=== PATIENT | female | born 1960 | race Caucasian/White ===

== ENCOUNTER → 2020-04-07 10:36 | Outpatient (BNVA) | payer MEDICARE, MEDICAID, SELFPAY | PROVIDERS: PCP Internal Medicine; Referring Provider Internal Medicine; Visit Provider Orthopaedic Surgery | DX: M75.41 Impingement syndrome of right shoulder (principal); S43.005D Unspecified dislocation of left shoulder joint, subsequent encounter | CPT/HCPCS: 20610; 99212; J1100 ==

== ENCOUNTER 2020-04-20 10:16 | Outpatient (REF) | payer MEDICARE, MEDICAID, OTHER, SELFPAY ==
--- NOTE | 2020-04-20 10:18 | MR_ITS ---
EXAMINATION: MRI SHOULDER WITHOUT CONTRAST, LEFT CLINICAL INFORMATION: Dislocation left shoulder. COMPARISON: X-ray of the left shoulder 01/19/2020. TECHNIQUE: MRI of the left shoulder was performed on a high-field 1.5 Kathy MRI scanner. FINDINGS: ROTATOR CUFF: Supraspinatus and Infraspinatus: There is a complete insertional tear involving both tendons anterior to posterior. The tear results in tendon retraction back to the level of the glenoid resulting in a tendon gap measuring 5.2 cm medial to lateral and 5 cm anterior to posterosuperiorly. There is also a complete or near full-thickness versus full-thickness insertional tear of the subscapularis. There appears to be some bursal-sided fibers still intact at least along the inferior aspect of the tendon. The tear results in retraction of the torn tendon 3 cm medial to lateral. The teres minor tendon is intact. There is moderate atrophy and fatty infiltration of the supraspinatus, infraspinatus and subscapularis muscles along with some mild generalized edema. BICEPS TENDON: There is minimal, if any, irregular tendon identified in the usual expected course indicative of a complete or high-grade partial tear originating within the intra-articular portion the biceps. The torn tendon is also subluxed medially, likely related to the aforementioned subscapularis tear. CORACOACROMIAL ARCH: There is moderate hypertrophic osteoarthritis of the acromioclavicular joint. Mild concavity of the undersurface of the acromion. No subacromial spur. BURSA: There is fluid within the subacromial-subdeltoid bursa communicating with the joint through the rotator cuff defect. LABRUM/CAPSULE: Some blunting of the posterior labrum compatible with normal variation or degenerative tearing. GLENOHUMERAL JOINT: There are small marginal osteophytes along the inferior aspect of the humeral head. There is cartilage heterogeneity along the superolateral aspect of the apex of the humeral head. There is nonuniform up to high-grade cartilage loss with the cartilage abnormality most prominent in the central aspect of the glenoid. Overall, [id number] glenohumeral arthrosis. There is a moderate joint effusion with synovitis. MR/MR shoulder LT wo con IMPRESSION: 1. Large insertional full-thickness tear of the supraspinatus and infraspinatus tendons with additional atrophy and fatty infiltration of the muscles suggesting old or chronic rotator cuff injury. 2. Similarly, there is an insertional full-thickness/near full-thickness tear of the subscapularis. The may be some tendon tissue still intact along the inferior aspect of the tendon. There is also atrophy and fatty infiltration of the muscle indicative of a chronic or old tear. 3. Complete or near-complete tear of the biceps tendon; favor functionally complete tear with minimal irregular tendon tissue noted throughout the expected course of the tendon. The abnormal tendon tissue identified also appears to be medially subluxed, likely related to the subscapularis tear. 4. Degenerative tearing of the posterior labrum versus normal variation. 5. [id number] glenohumeral arthrosis with associated joint effusion and synovitis.
== END 2020-04-20 10:17 | disposition home or self-care (01) ==
LOC: HO.MRI 10:16
PROVIDERS: Visit Provider Orthopaedic Surgery
DX: S43.005A Unspecified dislocation of left shoulder joint, initial encounter (principal)
CPT/HCPCS: 73221

== ENCOUNTER → 2020-05-04 11:21 | Outpatient (BNVA) | payer MEDICARE, MEDICAID, OTHER, SELFPAY | PROVIDERS: PCP Internal Medicine; Referring Provider Internal Medicine; Visit Provider Orthopaedic Surgery | DX: M75.122 Complete rotator cuff tear or rupture of left shoulder, not specified as traumatic (principal) | CPT/HCPCS: 99212 ==

== ENCOUNTER → 2020-06-26 14:34 | Outpatient (BNVA) | payer MEDICARE, MEDICAID, OTHER, SELFPAY | PROVIDERS: PCP Internal Medicine; Visit Provider Internal Medicine Cardiovascular Disease | DX: Z01.810 Encounter for preprocedural cardiovascular examination (principal); I10 Essential (primary) hypertension | CPT/HCPCS: 93005; 99212 ==

== ENCOUNTER → 2020-08-04 11:29 | Outpatient (BNVA) | payer MEDICARE, MEDICAID, SELFPAY | PROVIDERS: PCP Internal Medicine; Visit Provider Orthopaedic Surgery | DX: M75.41 Impingement syndrome of right shoulder (principal) | CPT/HCPCS: 20610; 99212; J1040 ==

== ENCOUNTER → 2020-08-14 12:41 | Outpatient (BNVA) | payer MEDICARE, SELFPAY | PROVIDERS: PCP Internal Medicine; Visit Provider Orthopaedic Surgery | DX: Z13.89 Encounter for screening for other disorder (principal) | CPT/HCPCS: 99212 ==

== ENCOUNTER 2020-09-11 10:10 | Outpatient (REF) | payer MEDICARE, MEDICAID, SELFPAY ==
--- NOTE | ~2020-09-11 | CT_ITS ---
EXAMINATION: CT SHOULDER WITHOUT CONTRAST, LEFT CLINICAL INFORMATION: Impingement syndrome of the left shoulder. COMPARISON: Left shoulder MRI dated 04/20/2020. TECHNIQUE: Contiguous axial CT images of the left shoulder were obtained without contrast. Multiplanar reformats were provided and reviewed. This CT examination was performed using dose optimization techniques as appropriate, variously including the following: *Automated exposure control *Adjustment of mA and/or kV according to patient size (this includes techniques or standardized protocols for targeted exams where dose is matched to indication/reason for exam; i.e. extremities or head) *Use of iterative reconstruction technique DOSE: 418 mGy-cm. FINDINGS: No acute fracture or dislocation. Small acromioclavicular marginal osteophytes. Mild glenohumeral joint space narrowing with small marginal osteophytes. Posterior glenoid subchondral cystic change. The humeral head is well seated within the glenoid. No concerning lytic or blastic osseous lesion. No significant glenoid retroversion. The glenoid vault depth measures approximately 2.5 cm. Attenuation of the supraspinatus and infraspinatus tendons, consistent with tearing which is better seen in the prior MRI. Prominent subscapularis, supraspinatus, infraspinatus, and teres minor muscle atrophy. No abnormal soft tissue mass or fluid collection. The visualized left lung is clear. CT/CT shoulder LT wo con IMPRESSION: 1. Moderate glenohumeral osteoarthritis and mild acromioclavicular osteoarthritis. 2. Attenuation of the supraspinatus and infraspinatus tendons, consistent with tearing which is better visualized on the prior MRI. 3. Prominent muscle atrophy within the subscapularis, supraspinatus, infraspinatus, and teres minor muscles.
== END 2020-09-11 10:11 | disposition home or self-care (01) ==
LOC: HO.CT 10:10
PROVIDERS: PCP Internal Medicine; Visit Provider Orthopaedic Surgery
DX: M12.812 Other specific arthropathies, not elsewhere classified, left shoulder (principal)
CPT/HCPCS: 73200

== ENCOUNTER → 2020-09-28 12:04 | Outpatient (BNVA) | payer MEDICARE, MEDICAID, SELFPAY | PROVIDERS: PCP Internal Medicine; Visit Provider Physician Assistant | DX: Z01.818 Encounter for other preprocedural examination (principal); M12.812 Other specific arthropathies, not elsewhere classified, left shoulder | CPT/HCPCS: 99212 ==

== ENCOUNTER 2020-09-29 | Outpatient (REF) | payer MEDICARE, MEDICAID, SELFPAY ==
--- NOTE | 2020-09-29 11:52 | P.CONAN_ITS ---
HPI - Anesthesia Eval Consult details Narrative: 60yo F for Left Shoulder Total Repair, reversed total shoulder ar throplasty PCP cleared prior to preop labs. Preop labs drawn 09/29/20. K=2.7. Per Dr Lyle, pt needs aggressive PO repletion over long weekend with lytes recheck DOS. PCP unavailable to direct care. Per sasha, pt to be rescheduled PER CARDIAC CLEARANCE 06/2020 for back surgery: I think she does not do exercise stress test. She is intermediate risk for perioperative cardiovascular complications. Echocardiography in October 2019 showed hyperdynamic left ventricle with systolic anterior motion of mitral valve chordae (there was no systolic anterior motion of the leaflets). Usually this does not lead to significant LVOT obstruction but in the perioperative period if she develops hypertension and fluid resuscitation and using phenylephrine or vasopressin as the 1st line pressors would be the best strategy. [facility] Active Problems Active Problems: All Active Problems (Updated 09/28/20 @ 10:22 by Codie Morales) Preoperative cardiovascular examination (Acute) Rotator cuff arthropathy of left shoulder (Acute) Impingement syndrome of right shoulder (Acute) Dislocation of left shoulder joint (Acute) HTN (hypertension) (Acute) Past Medical History Medical History (Updated 09/29/20 @ 12:22 by Codie Morales) Aortic valve stenosis Arthritis Dislocation of left shoulder joint Environmental allergies GERD (gastroesophageal reflux disease) Hepatitis HTN (hypertension) Impingement syndrome of right shoulder Primary osteoarthritis, right shoulder Rotator cuff arthropathy of left shoulder Unilateral primary osteoarthritis, right knee Family History Family History Father No problems noted. Mother No problems noted. 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 >4 [address]s with stairs. No CP/SOB within limits of activity. Meds Allergies Allergy/AdvReac Type Severity Reaction Status Date / Time amoxicillin Allergy Mild headaches, Verified 09/28/20 12:12 nausea atorvastatin AdvReac Severe severe Verified 09/28/20 12:12 muscle cramping Home Medications Medication Instructions Recorded Confirmed Last Taken Type amlodipine 10 mg tablet 10 mg PO QAM 04/06/20 09/29/20 Unknown History ezetimibe 10 mg tablet 10 mg PO BEDTIME 04/06/20 09/29/20 Unknown History lisinopril 20 mg tablet 20 mg PO QAM 04/06/20 09/29/20 Unknown History acetaminophen 1,000 mg PO BID 09/29/20 09/29/20 Unknown History albuterol sulfate [Ventolin HFA] 2 puff INHALATION Q4-6H PRN 09/29/20 09/29/20 Unknown History melatonin 12 mg PO BEDTIME 09/29/20 09/29/20 Unknown History omeprazole 20 mg PO QAM 09/29/20 09/29/20 Unknown History venlafaxine 225 mg PO BEDTIME 09/29/20 09/29/20 Unknown History Exam Exam Date and Time: September 29, 2020 1152 Narrative Narrative: EKG 09/2020 (at PCP) NSR ?LAE LVH Prolonged QT (EFm=855) ECHO 10/2019 1. Normal LV systolic unction with asymmetric septal hypertrophy with mild LAE increased gradient across LVOT suggestive of obstruction with grade 1 diastolic dysfunction 2. Mild Aortic regurgitation 3. Mild dilated ascending aorta 4. No pericardial effusion 5. Normal RV systolic pressure Airway Mallampati Class: II TM Dist: >3cm Neck ROM: Full Loose/Missing/Broken Teeth: Yes (#9 chipped. Multiple molars missing.) Heart: RRR +M Lungs: Uppers clear, expiratory wheezes in bases Assessment and Plan Assessment Anesthesia Assessment: Anesthesia Plan Discussed, Smoking Cess. Discussed and PAT Visit
[2020-09-29 12:05] VITALS: BMI 33.8
[2020-09-29 12:28] VITALS: BP 99/63; PULSE 89; RESP 18; O2SAT 96
[2020-09-29 13:48] LABS: MANUAL DIFF FLAG NO
[2020-09-29 14:02] LABS: Basophils Percent Auto 0.5 % (0-2); Eosinophils Absolute Auto 0.1 X10*3/uL (0.0-0.4); Eosinophils Percent Auto 0.9 % (0-4); Hematocrit 38.9 % (37-47); Hemoglobin 14.4 g/dl (12.0-16.0); Imm Gran Abs Auto 0.04 X10*3/uL (0.00-0.03); Imm Gran Pct Auto 0.7 % (0.0-0.4); Lymphocytes Percent Auto 17.6 % (20-40); Mean Corpuscular Hemoglobin 36.7 pg (27.0-33.0); Mean Corpuscular Volume 99.2 fL (80-98); Mean Platelet Volume 9.3 fL (9.4-12.3); Monocytes Absolute Auto 0.4 X10*3/uL (0.1-1.2); NRBC Pct Auto 0.9 /100WBC (0.0-0.2); Neutrophils Absolute Auto 4.3 X10*3/uL (2.0-8.3); Neutrophils Percent Auto 73.3 % (45-73); Platelet Count 152 X10*3/uL (160-400); Red Blood Count 3.92 X10*6/uL (4.20-5.50); Red Cell Distribution Width 18.8 % (11.0-16.0); White Blood Count 5.9 X10*3/uL (4.8-10.8)
[2020-09-29 14:29] LABS: MRSA Nasal PCR NEGATIVE (Negative); SA Nasal PCR NEGATIVE (Negative)
[2020-09-29 14:31] LABS: Blood Urea Nitrogen 6 mg/dL (9-16); Carbon Dioxide 31 mmol/L (22-29); Chloride 95 mmol/L (96-108); Creatinine Clr Calc Pharmacy 78.1; Estimated Glomerular Filt Rate > 60; Sodium 140 mmol/L (135-145)
[2020-09-29 14:35] LABS: Anion Gap 17 (12-20); Potassium 2.7 mmol/L (3.3-5.1)
== END 2020-09-29 00:01 | disposition home or self-care (01) ==
LOC: HO.PAT
PROVIDERS: Physician Assistant; PCP Internal Medicine; Visit Provider Orthopaedic Surgery
DX: Z01.818 Encounter for other preprocedural examination (principal); M75.102 Unspecified rotator cuff tear or rupture of left shoulder, not specified as traumatic; F17.210 Nicotine dependence, cigarettes, uncomplicated; Z71.6 Tobacco abuse counseling
CPT/HCPCS: 36415; 80051; 82565; 84520; 85025; 86850; 86900; 86901; 87640; 87641

== ENCOUNTER → 2020-11-02 13:45 | Outpatient (BNVA) | payer MEDICARE, MEDICAID, SELFPAY | PROVIDERS: PCP Internal Medicine; Visit Provider Orthopaedic Surgery | DX: M19.011 Primary osteoarthritis, right shoulder (principal); M12.812 Other specific arthropathies, not elsewhere classified, left shoulder | CPT/HCPCS: 20610; 99212; J1100 ==

== ENCOUNTER → 2021-04-09 13:17 | Outpatient (BNVA) | payer MEDICARE, MEDICAID, SELFPAY | PROVIDERS: Visit Provider Orthopaedic Surgery | DX: M19.011 Primary osteoarthritis, right shoulder (principal); M12.812 Other specific arthropathies, not elsewhere classified, left shoulder | CPT/HCPCS: 99212 ==

== ENCOUNTER 2021-05-15 13:56 | Outpatient (REF) | payer MEDICARE, MEDICAID, SELFPAY ==
--- NOTE | ~2021-05-15 | CT_ITS ---
EXAMINATION: CT SHOULDER WITHOUT CONTRAST, RIGHT CLINICAL INFORMATION: Primary osteoarthritis, right shoulder. COMPARISON: None TECHNIQUE: Helical scanning was performed with submillimeter collimation in the axial plane with multiplanar 2-D reconstructions. This CT examination was performed using dose optimization techniques as appropriate, variously including the following: *Automated exposure control *Adjustment of mA and/or kV according to patient size (this includes techniques or standardized protocols for targeted exams where dose is matched to indication/reason for exam; i.e. extremities or head) *Use of iterative reconstruction technique DLP: 685 mGy-cm FINDINGS: There are a few scattered areas of subpleural fibrotic changes in the visualized right lung. Otherwise unremarkable. There is severe advanced osteoarthritis of the glenohumeral joint. There is diffuse severe joint space narrowing with a vacuum phenomenon. There are numerous subchondral degenerative cysts and patchy sclerosis. There are marginal osteophytes, including a large inferomedial humeral head osteophyte. There is a moderate joint effusion with a small loose body in the anterior aspect of the axillary recess. There is fluid distending the biceps tendon sheath, as well. There is an unfused os acromiale with some hypertrophic degenerative changes, including prominent osteophytes, particularly at the superior margin. There is also a chronic-appearing ossification superiorly which may be degenerative or posttraumatic. There is moderate osteoarthritis of the acromioclavicular joint. CT/CT shoulder RT wo con IMPRESSION: 1. Severe advanced osteoarthritis of the glenohumeral joint. Moderate joint effusion with small loose body in the axillary recess. 2. Unfused os acromiale with moderate hypertrophic degenerative changes. 3. Moderate osteoarthritis of the acromioclavicular joint.
== END 2021-05-15 13:57 | disposition home or self-care (01) ==
LOC: HO.CT 13:56
PROVIDERS: Visit Provider Orthopaedic Surgery
DX: M19.011 Primary osteoarthritis, right shoulder (principal)
CPT/HCPCS: 73200

== ENCOUNTER → 2021-06-29 12:04 | Outpatient (BNVA) | payer MEDICARE, MEDICAID, SELFPAY | PROVIDERS: Visit Provider Nurse Practitioner Family | DX: Z01.810 Encounter for preprocedural cardiovascular examination (principal); R94.31 Abnormal electrocardiogram [ECG] [EKG]; I10 Essential (primary) hypertension; I42.2 Other hypertrophic cardiomyopathy; I35.1 Nonrheumatic aortic (valve) insufficiency | CPT/HCPCS: 93005; 99212 ==

== ENCOUNTER → 2021-07-03 07:31 | Outpatient (REF) | payer MEDICARE, MEDICAID, SELFPAY ==
--- NOTE | ~2021-07-03 | NM_ITS ---
Lexiscan Myocardial perfusion study Indication: Preoperative cardiovascular evaluation Technique: The patient was brought in for a Lexiscan perfusion study on 07/03/2021 and was injected 0.4 mg of Lexiscan intravenously. Within a minute of this injection 30 mCi of sestamibi was given intravenously. Images were obtained using the SPECT gamma camera interlaced with the gating device. Images were obtained in supine position. Resting perfusion study was performed on 07/05/2021. Patient was administered 30 mCi of sestamibi intravenously at rest. Images were then obtained in supine position. Total DLP 96mGy-cm. Images were processed with the software and compared side to side in short axis, horizontal long axis and vertical long axis views. Findings: Raw acquisition was reviewed. The stress perfusion study showed mildly diminished tracer uptake in the basal part of inferior wall. There is improvement with CT attenuation correction suggesting diaphragmatic attenuation artifact. The gated study shows normal LV systolic function with calculated LVEF of 52%. LV cavity is normal in size. The gated study shows normal wall thickening and contraction of segments. Resting study shows mildly diminished tracer uptake in the basal part of inferior wall. Gating at rest reveals normal wall motion with ejection fraction at 64%. The findings are consistent with no reversible defects. Mild basal inferior fixed defect likely from diaphragmatic attenuation artifact NM/NM cardiolite stress test Impression: 1. Myocardial perfusion imaging study shows likely normal myocardial perfusion. 2. Gated LVEF is 52% during stress and 64% during rest. 3. Transient ischemic dilatation not present. EKG component of the test reported separately.
--- NOTE | 2021-07-03 07:38 | CA_ITS ---
Transthoracic Echocardiogram Patient (Last, First, Middle): Makenzie Brwon, Gender: Female Date of : 1960 Age: 61 Procedure Date: 07/03/2021 Procedure Type: Transthoracic Echocardiogram Location: OP Height: 165.1 cm Weight: 86.18 kg BSA: 1.94 m2 Heart Rate: bpm BP: 130 / 70 mmHg Operating Room Tech: DSG Referring MD: Jewels Patel SAMPLE SELECTORFarzad Symptoms: R94.31 - Abnormal electrocardiogram [ECG] [EKG] Study Quality: Fair ECG Rhythm: Sinus Conclusions: - The left ventricular systolic function is normal. The visually estimated ejection fraction is between 65-70%. - There is moderate septal asymmetric hypertrophy. - There is mild calcification of the aortic valve. There is no aortic valve stenosis. - Proximal ascending aorta measured at 4.4cm (?accurate); more distally 4.2cm. Consider CTA if clinically indicated. Findings Left Ventricle Normal left ventricular cavity size. There is mildly increased left ventricular wall thickness. The left ventricular systolic function is normal. The visually estimated ejection fraction is between 65-70%. There is no evidence of regional wall motion abnormalities. Diastolic function is indeterminate on the basis of available data. There is moderate septal asymmetric hypertrophy. Right Ventricle Normal right ventricular cavity size and systolic function. Atria Both atria are normal in size. Aortic Valve There is a normal trileaflet aortic valve. There is mild calcification of the aortic valve. There is no aortic valve stenosis. The peak aortic gradient is 12 mmHg.Trace to mild aortic regurgitation. Mitral Valve The mitral valve appears normal. There is trace mitral valve regurgitation. There is no mitral valve stenosis. Pulmonic Valve The pulmonic valve was not well visualized. Tricuspid Valve Normal tricuspid valve structure. There is trace tricuspid valve regurgitation. The pulmonary artery systolic pressure is normal. Great Vessels The aortic arch is normal in size. Proximal ascending aorta measured at 4.4cm (?accurate); more distally 4.2cm. Venous The inferior vena cava is normal in size and collapses greater than 50% with inspiration. Pericardium/Pleural There is no evidence of pericardial effusion. Prior Study Comparison Changes noted compared to prior study dated: 11/10/2019. LV not clearly hyperdynamic. Measurements 2D Linear Measurements IVSd: 1.36 0.6-0.9/0.6-1.0 cm LVIDd: 4.62 3.9-5.3/4.2-5.9 cm LVIDd Index: 2.38 2.4-3.2/2.2-3.1 cm/m2 LVIDs: 2.80 2.0-3.6 cm LVPWd: 1.16 0.7-1.1 cm Ao Root: 3.90 2.1-3.5 cm LA Diam: 3.40 2.7-3.8/3.0-4.0 cm LAIDs Index: 1.75 1.5-2.3 cm/m2 LV Mass: 276.00 67-162/88-224 g LV Mass Index: 142.27 43-95/49-115 g/m2 LVOT Diam: 2.30 3.0+(-)1.3 cm 2D Systolic Function EF 4C: 59.30 >55% Mitral Valve E'Lateral: 6.64 E'Medial: 4.68 Aortic Valve AoV Pk Roque: 1.75 AoV Pk Grad: 12.00 AI Pk Roque: 4.71 AI [place]: 2.90 LVOT LVOT Pk Roque: 1.64 LVOT Mn Roque: 1.08 LVOT VTI: 0.31 LVOT Pk Grad: 11.00 LVOT Mn Grad: 6.00 LVOT Diam: 2.30 LVOT Area: 4.15 Diastolic Function E'Medial: 4.68 E' Laterial: 6.64 Right Ventricle TAPSE (mm): 1.93 TVS' Roque: 10.10 Tricuspid Valve RA Press: 3.00 Great Vessels Aorta Ao Root-2D: 3.90 2.0-3.7 cm Ao Asc: 4.20 2.1-3.4 cm Ao Arch: 2.70 Updated in Other Vendor System with Status of Final Ash Conley MD electronically signed on 07/03/2021 10:28:22 AM with status of Final
--- NOTE | 2021-07-03 07:38 | CA_ITS ---
Acquisition Time: 2021-07-03 09:22:02 Total Exercise Time: 00:02:00 Test Indications: PREOP Medications: SEE CHART Protocol: LEXISCAN Max HR: 121 BPM 75% of Pred: 160 BPM Max BP: 136/076 mmHG Max Work Load: 1.4 METS Pharmacological stress test with Lexiscan injection, while walking on treadmill for 1.5 min with sob post injection, no chest discomfort, with isolated PVC, with normotensive response to injection, with nondiagnostic EKG for ischemia. The shortness of breath resolved quickly in recovery. Nuclear images pending. Test reviewed with Dr Brito. Referred By: Jewels Patel Overread By: JEWELS PATEL
== END ==
LOC: HO.CARD 07:31
PROVIDERS: PCP Internal Medicine; Visit Provider Nurse Practitioner Family
DX: Z01.810 Encounter for preprocedural cardiovascular examination (principal); R94.31 Abnormal electrocardiogram [ECG] [EKG]; I10 Essential (primary) hypertension
CPT/HCPCS: 78452; 93017; 93306; A9500; J0280; J2785

== ENCOUNTER → 2021-07-12 13:16 | Outpatient (BNVA) | payer MEDICARE, MEDICAID, SELFPAY | PROVIDERS: Visit Provider Physician Assistant | DX: M19.011 Primary osteoarthritis, right shoulder (principal) | CPT/HCPCS: 99212 ==

== ENCOUNTER 2021-07-17 06:22 | Inpatient (IN) | payer MEDICARE, MEDICAID, SELFPAY ==
[2021-07-05 11:50] VITALS: BP 89/66; PULSE 84; RESP 20; O2SAT 97; BMI 33.1
--- NOTE | 2021-07-05 12:15 | HO.ANESPROP2 ---
Documented by User: Iona Fournier NP 07/16/21 08:49 HPI - Anesthesia Eval Consult details Narrative: 61yo F for Right Shoulder Total Arthroplasty Moderate septal asymmetric hypertrophy. Cardiac cleared @ intermediate: Echocardiogram shows EF 65-70%, moderate septal hypertrophy, proximal aorta 4.4 cm, distal 4.2 cm.? Will order a CTA of the chest to evaluate aorta, does not need to be done prior to her surgery.? Nuclear stress test showed likely normal myocardial perfusion imaging.? Tests results reviewed with Dr. Brito.? Patient intermediate cardiac risk to proceed with surgery.? Call/consult Cardiology if needed. Prev cx'd for K/Mg abnormality. Managed by PCP. Now WNL [facility] Active Problems Active Problems: All Active Problems (Updated 07/05/21 @ 11:44 by Codie Morales RN) Preoperative cardiovascular examination (Acute) Osteoarthritis of right shoulder (Acute) Abnormal EKG (Acute) Aortic regurgitation (Acute) Asymmetric septal hypertrophy (Acute) Rotator cuff arthropathy of left shoulder (Acute) Impingement syndrome of right shoulder (Acute) Dislocation of left shoulder joint (Acute) HTN (hypertension) (Acute) Past Medical History Medical History Arthritis Asymmetric septal hypertrophy COVID-19 vaccine series completed Depression Dislocation of left shoulder joint Environmental allergies GERD (gastroesophageal reflux disease) Heart murmur Hepatitis HTN (hypertension) Hypokalemia Impingement syndrome of right shoulder Primary osteoarthritis, right shoulder Rotator cuff arthropathy of left shoulder Unilateral primary osteoarthritis, right knee Family History Family History Father No problems noted. Mother No problems noted. Family history of problems with anesthesia: Yes (Mother long to wake.) Surgical History Surgical History H/O colonoscopy History of appendectomy History of arthroplasty of both knees History of back surgery History of carpal tunnel release Hx of hysterectomy Hx of shoulder surgery History of Problems with Anesthesia: No Social History Social History Are you a primary healthcare prof to a significant other at home: No Do you presently have visiting nurse or other home services: Yes ([facility]) Patient Tobacco Use Status: Current everyday Tobacco user Tobacco use type: Cigarette Cigarette Packs Per Day: 0.5 Cigarettes Per Day: 10 Years Smoked: 42 Smoked in Last 30 Days: Yes Patient Interested in Nicotine Replacement: Yes Patient Given Instructions on How to Stop Smoking: Yes Date Education Initiated: 07/05/21 Second Hand Smoke Exposure: No Use of substances other than those prescribed or required for medical reasons: No Have you been hit, kicked, punched, or otherwise hurt by someone within the past year? 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 Occassional palps, but resolve with calming techniques. Meds Allergies Allergy/AdvReac Type Severity Reaction Status Date / Time atorvastatin AdvReac Severe severe Verified 06/29/21 12:18 muscle cramping amoxicillin AdvReac Mild headaches, Verified 07/17/21 07:16 nausea Home Medications Medication Instructions Recorded Confirmed Last Taken Type amlodipine 10 mg tablet 10 mg PO QAM 04/06/20 07/05/21 07/17/21 History ezetimibe 10 mg tablet 10 mg PO BEDTIME 04/06/20 07/05/21 Unknown History lisinopril 20 mg tablet 20 mg PO QAM 04/06/20 07/05/21 Unknown History acetaminophen 500 mg tablet 1,000 mg PO BID 09/29/20 07/05/21 Unknown History albuterol sulfate 90 mcg/actuation 2 puff INHALATION Q4-6H PRN 09/29/20 07/05/21 Unknown History aerosol inhaler (Ventolin HFA) melatonin 12 mg tablet 12 mg PO BEDTIME 09/29/20 07/05/21 Unknown History omeprazole 20 mg capsule,delayed 20 mg PO QAM 09/29/20 07/05/21 07/17/21 History release venlafaxine 225 mg tablet,extended 225 mg PO BEDTIME 09/29/20 07/05/21 Unknown History release 24 hr tizanidine 4 mg tablet 4 mg PO TID PRN 07/04/21 07/05/21 Unknown History tramadol 50 mg tablet 50 mg PO BID PRN 07/04/21 07/05/21 Unknown History Exam Exam Date and Time: July 05, 2021 1215 Height,Weight and Vital Signs: Height 5 ft 5 in Weight 90.265 kg Last Vital Signs Pulse 84 07/05/21 11:50 Resp 20 07/05/21 11:50 BP 89/66 L 07/05/21 11:50 Pulse Ox 97 07/05/21 11:50 Repeat BP 125/68 Pertinent Lab Results Pertinent Lab Results: Labs from outside facility 06/20/21 WBC 508 Hgb 15.2 Hct 43.7 Plt 142 (L) Na 140 K 4.3 Cl 103 Bicarb 26 Bun 11 Creat 0.7 Mg 1.7 Narrative Narrative: EKG 06/2021 SR, T wave inversion aVL, V1-V2, tall T waves, QTc 481ms, rate 83 ECHO 06/2021 Conclusions: - The left ventricular systolic function is normal.? The visually estimated ejection fraction is between 65-70%. ? - There is moderate septal asymmetric hypertrophy. ? - There is mild calcification of the aortic valve.? There is no? aortic valve stenosis. ? - Proximal ascending aorta measured at 4.4cm (?accurate); more ? distally 4.2cm.? Consider CTA if clinically indicated. ? NM cardiolite stress test 06/2021 Impression: ? 1.? Myocardial perfusion imaging study shows likely normal myocardial perfusion. 2.? Gated LVEF is 52% during stress and 64% during rest. 3. Transient ischemic dilatation not present. ? EKG component of the test non-diagnostic.. Airway Mallampati Class: II TM Dist: >3cm Neck ROM: Full Adult Head Mouth w/Numbe Teeth: 1. Chipped Loose/Missing/Broken Teeth: Yes (Many missing, #9 chipped) Heart: RRR +M Lungs: CTAB Assessment and Plan Assessment Anesthesia Assessment: Anesthesia Plan Discussed, Smoking Cess. Discussed and PAT Visit Final Anesthetic Review Family History of Problems with Anesthesia: Yes (Mother long to wake.) History of Problems with Anesthesia: No Documented by User: Storm Puri MD 07/17/21 09:16 [facility] Past Medical History Medical History Arthritis Asymmetric septal hypertrophy COVID-19 vaccine series completed Depression Dislocation of left shoulder joint Environmental allergies GERD (gastroesophageal reflux disease) Heart murmur Hepatitis HTN (hypertension) Hypokalemia Impingement syndrome of right shoulder Primary osteoarthritis, right shoulder Rotator cuff arthropathy of left shoulder Unilateral primary osteoarthritis, right knee Family History Family History Father No problems noted. Mother No problems noted. Surgical History Surgical History H/O colonoscopy History of appendectomy History of arthroplasty of both knees History of back surgery History of carpal tunnel release Hx of hysterectomy Hx of shoulder surgery Social History Social History Are you a primary healthcare prof to a significant other at home: No Do you presently have visiting nurse or other home services: Yes ([facility]) Patient Tobacco Use Status: Current everyday Tobacco user Tobacco use type: Cigarette Cigarette Packs Per Day: 0.5 Cigarettes Per Day: 10 Years Smoked: 42 Smoked in Last 30 Days: Yes Patient Interested in Nicotine Replacement: Yes Patient Given Instructions on How to Stop Smoking: Yes Date Education Initiated: 07/05/21 Second Hand Smoke Exposure: No Use of substances other than those prescribed or required for medical reasons: No Have you been hit, kicked, punched, or otherwise hurt by someone within the past year? 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 Allergies Allergy/AdvReac Type Severity Reaction Status Date / Time atorvastatin AdvReac Severe severe Verified 06/29/21 12:18 muscle cramping amoxicillin AdvReac Mild headaches, Verified 07/17/21 07:16 nausea Home Medications Medication Instructions Recorded Confirmed Last Taken Type amlodipine 10 mg tablet 10 mg PO QAM 04/06/20 07/05/21 07/17/21 History ezetimibe 10 mg tablet 10 mg PO BEDTIME 04/06/20 07/05/21 Unknown History lisinopril 20 mg tablet 20 mg PO QAM 04/06/20 07/05/21 Unknown History acetaminophen 500 mg tablet 1,000 mg PO BID 09/29/20 07/05/21 Unknown History albuterol sulfate 90 mcg/actuation 2 puff INHALATION Q4-6H PRN 09/29/20 07/05/21 Unknown History aerosol inhaler (Ventolin HFA) melatonin 12 mg tablet 12 mg PO BEDTIME 09/29/20 07/05/21 Unknown History omeprazole 20 mg capsule,delayed 20 mg PO QAM 09/29/20 07/05/21 07/17/21 History release venlafaxine 225 mg tablet,extended 225 mg PO BEDTIME 09/29/20 07/05/21 Unknown History release 24 hr tizanidine 4 mg tablet 4 mg PO TID PRN 07/04/21 07/05/21 Unknown History tramadol 50 mg tablet 50 mg PO BID PRN 07/04/21 07/05/21 Unknown History Exam Airway Adult Head Mouth w/Numbe Teeth: 1. Chipped Assessment and Plan Final Anesthetic Review NPO: Yes ASA Class: III Final Preanesthetic Review: No Changes in Pt Med Stat, Meds/Allgs Chart Reviewed, Consent Obtained/Reviewed and Anes Risks/Benef Reviewed Patient Risk: Intermediate Procedure Risk: Intermediate Anesthetic Plan Anesthetic Plan: GA and Regional Block Disposition: Standard PACU
[2021-07-05 13:46] LABS: Magnesium 1.7 mg/dL (1.6-2.6)
[2021-07-05 14:13] LABS: MRSA Nasal PCR NEGATIVE (Negative); SA Nasal PCR NEGATIVE (Negative)
[2021-07-17] VITALS (16 sets, daily range): BP systolic 107–159; BP diastolic 64–96; PULSE 78–103; RESP 18–22; TEMP 36–36.4; O2SAT 93–98
--- NOTE | ~2021-07-17 | XR_ITS ---
EXAMINATION: XR SHOULDER, RIGHT CLINICAL INFORMATION: Right shoulder replacement COMPARISON: Previous CT August 2020 TECHNIQUE: AP portable of the right shoulder. FINDINGS: There is a new right shoulder replacement in satisfactory position. No fracture or dislocation is seen. There are postsurgical changes to the soft tissues. There is subsegmental atelectasis of the right lung base. XR/XR shoulder RT 1V IMPRESSION: Satisfactory appearance of right shoulder replacement.
[2021-07-17 06:52] LABS: COVID-19 Test Negative (Negative); IDNOW Serial# 9DD0AD1C
[2021-07-17] MEDS: Lactated Ringers 1,000 ML 100 ML IVCONT (07:08)
--- NOTE | 2021-07-17 07:26 | MHC.SHP ---
Pre-Procedural Eval Section A Date of Service: 07/17/21 The patient is an INPATIENT: No Changes since office visit: Yes Patient answered all questions; No Cold of Flu in the past 2 weeks, No New Medical Problems and No Changes in Medication The History & Physical has been completed within 30 days and I have reviewed it.: Yes Section B Chief Complaint: RT TSA Allergies: Allergies Allergy/AdvReac Type Severity Reaction Status Date / Time atorvastatin AdvReac Severe severe Verified 06/29/21 12:18 muscle cramping amoxicillin AdvReac Mild headaches, Verified 07/17/21 07:16 nausea Plan I have reviewed the history and physical and performed a pertinent physical examination on my patient. No changes have occurred unless specified.
--- NOTE | 2021-07-17 10:18 | PM.OP ---
Brief Operative Note Date of Service: 07/17/21 Pre-op diagnosis: right shoulder OA Post-op diagnosis: same Procedure: Right TSA Implants: Tournier 48 flex cementless stem 48x20 high offset head small 40 Perform glenoid Surgeon: Aleksey Murpyh MD Anesthesia: GETA and regional Was an Chemical Compounder used for this Procedure?: Yes Chemical Compounder: Columba Nguyễn Estimated blood loss (mL): 200 IV fluids (mL): 1,000 Pathology: none sent Condition: stable Disposition: PACU
[2021-07-17] MEDS: Albuterol/Iprat 2.5/0.5MG 3 ML AMPUL.NEB INHALE (10:55)
[2021-07-17] MEDS: Dextrose 5 % and 0.45 % NaCl 1,000 ML 80 ML IVCONT (11:32)
[2021-07-17] MEDS: Ketorolac Tromethamine 30 MG/ML VIAL IVPUSH (11:34)
[2021-07-17] MEDS: ceFAZolin Sodium/Dextrose,Iso 2 GM/50 ML PIGGYBACK IV (14:34)
[2021-07-17] MEDS: 0.9 % Sodium Chloride Flush 3 ML SYRINGE IVFLUSH ×2 (14:45→19:59)
[2021-07-17] MEDS: Docusate Sodium 100 MG CAPSULE PO (19:53)
[2021-07-17] MEDS: Celecoxib 200 MG CAPSULE PO (19:53)
[2021-07-17] MEDS: oxyCODONE HCl ER 10 MG TAB.ER.12H PO (19:53)
[2021-07-18 04:00] VITALS: BP 157/81; PULSE 93; RESP 18; TEMP 36.4; O2SAT 91
[2021-07-18] MEDS: Dextrose 5 % and 0.45 % NaCl 1,000 ML 80 ML IVCONT (05:35)
[2021-07-18 06:09] LABS: Eosinophils Percent Auto 0.1 % (0-4); Hematocrit 36.1 % (37.0-47.0); Hemoglobin 12.4 g/dl (12.0-16.0); Imm Gran Abs Auto 0.04 X10*3/uL (0.00-0.03); Imm Gran Pct Auto 0.3 % (0.0-0.4); Lymphocytes Absolute Auto 1.2 X10*3/uL (1.2-4.9); Lymphocytes Percent Auto 10.2 % (20-40); MANUAL DIFF FLAG SCAN; Mean Corpuscular HGB Conc 34.3 g/dl (31.0-35.0); Mean Corpuscular Hemoglobin 34.7 pg (27.0-33.0); Mean Corpuscular Volume 101.1 fL (80.0-98.0); Monocytes Absolute Auto 1.5 X10*3/uL (0.1-1.2); Neutrophils Percent Auto 76.4 % (45-73); Platelet Count 159 X10*3/uL (160-400); Red Blood Count 3.57 X10*6/uL (4.20-5.50); Red Cell Distribution Width 11.5 % (11.0-16.0); SCAN SMEAR FLAG 1; White Blood Count 11.7 X10*3/uL (4.8-10.8)
[2021-07-18 06:20] LABS: Anion Gap 12 (12-20); Blood Urea Nitrogen 14 mg/dL (9-16); Calcium 9.3 mg/dL (8.4-10.2); Carbon Dioxide 23 mmol/L (22-29); Chloride 109 mmol/L (96-108); Creatinine Clr Calc Pharmacy 94.8; Estimated Glomerular Filt Rate > 60; Glucose Fasting 121 mg/dL (60-99); Sodium 140 mmol/L (135-145)
[2021-07-18 06:32] LABS: SLIDE REVIEW VERIFIED
--- NOTE | 2021-07-18 06:51 | HO.POSTANES ---
Post Anesthesia Evaluation Post Anesthesia Evaluation Vital Signs: Vital Signs Temp Pulse Resp BP Pulse Ox 07/18/21 04:00 97.6 F 93 18 157/81 H 91 L 07/17/21 23:09 97.2 F 95 18 158/83 H 95 07/17/21 19:44 97.5 F 103 H 18 139/77 94 Anesthesia: Nerve Block and General Mental Status: Awake Pain Control: Satisfactory Nausea/Vomiting: None Hydration: Adequate Anesthesia-Related Issues: No Anes. Related Issues
[2021-07-18] MEDS: Celecoxib 200 MG CAPSULE PO (07:19)
[2021-07-18] MEDS: oxyCODONE HCl ER 10 MG TAB.ER.12H PO (07:19)
[2021-07-18] MEDS: Docusate Sodium 100 MG CAPSULE PO (07:19)
[2021-07-18] MEDS: oxyCODONE HCl Immed Release 5 MG TABLET 10 MG PO ×2 (07:19→11:07)
[2021-07-18] MEDS: Nicotine 21 MG PATCH.TD24 TRANSDERMA (07:20)
[2021-07-18 08:00] VITALS: BP 153/86; PULSE 94; RESP 18; TEMP 37.2; O2SAT 96
--- NOTE | 2021-07-18 08:53 | P.PNOP_ITS ---
Subjective Subjective Date of Service: 07/18/21 Interval history: POD 1 RT TSA No overnight events block partially active sling intact denies cp, sob, palpitations Physical Exam Verdana 4l Vital Signs: Verdana 4d Verdana 4d Vital Signs: Verdana 4d Verdana 4Bd Last Vital Signs Verdana 4d School Director New 4d School Director New 4d Temp 99.0 F 07/18/21 08:00 School Director New 4d Pulse 94 07/18/21 08:00 School Director New 4d Resp 18 07/18/21 08:00 BP 153/86 H 07/18/21 08:00 Pulse Ox 96 07/18/21 08:00 BMI result Body Mass Index 33.1 Const: General: cooperative, healthy appearing and no acute distress Resp: Effort & Inspection: normal respiratory effort and able to speak in complete sentences Cardio: Rate: regular rate Peripheral pulses: Peripheral pulses 2+ throughout GI: Palpation (GI): Soft to palpation Skin: General skin exam: no rashes or lesions noted Extrem: Other: Right shoulder bandage intact, sling intact, light sensation intact over ant. delotid, full sensation to forearm and hand. Radial nerve intact. Procedures Date of Service Date of Service: 07/18/21 Progress Note: A&P Assessment and plan (1) History of total replacement of right shoulder joint: Status: Acute Assessment and Plan: * Continue pain mgmnt * Begin Aspirin for dvt ppx * begin PT/OT for RT TSA * Dispo planning-Pending PT eval, pain mgmnt Fall Risk Details Current Medications: Current Medications Acetaminophen (Acetaminophen 325 Mg Tablet) 650 mg PO Q6H PRN PRN Reason: Pain, Mild (Pain Scale 1-3) Celecoxib (Celecoxib 200 Mg Capsule) 200 mg PO BID [facility] Last Admin: 07/18/21 07:19 Dose: 200 mg Documented by: Docusate Sodium (Docusate Sodium 100 Mg Capsule) 100 mg PO BID [facility] Last Admin: 07/18/21 07:19 Dose: 100 mg Documented by: Hydromorphone HCl (Hydromorphone Hcl 1 Mg/Ml Syringe) 0.25 mg IVPUSH Q4H PRN; Protocol PRN Reason: Pain, Severe (Pain Scale 7-10) Dextrose/Sodium Chloride (D51/2ns) 1,000 mls @ 80 mls/hr IVCONT .[id number] [facility] Last Admin: 07/18/21 05:35 Dose: 80 mls/hr Documented by: Nicotine (Nicotine 21 Mg Patch.Td24) 21 mg TRANSDERMA DAILY [facility] Last Admin: 07/18/21 07:20 Dose: 21 mg Documented by: Ondansetron HCl (Ondansetron Hcl 4 Mg/2 Ml Vial) 4 mg IVPUSH Q8H PRN PRN Reason: Nausea and Vomiting Oxycodone HCl (Oxycodone Hcl Immed Release 5 Mg Tablet) 10 mg PO Q4H PRN PRN Reason: Pain, Moderate (Pain Scale 4-6 Last Admin: 07/18/21 07:19 Dose: 10 mg Documented by: Oxycodone HCl (Oxycodone Hcl Er 10 Mg Tab.Er.12h) 10 mg PO BID [facility] Last Admin: 07/18/21 07:19 Dose: 10 mg Documented by: Sodium Chloride (0.9 % Sodium Chloride Flush 3 Ml Syringe) 3 ml IVFLUSH QSHIFT [facility] Last Admin: 07/18/21 07:12 Dose: Not Given Documented by: Time Spent With Patient Time: Total time spent is greater than 50% in coordination of care (as documented) at patient's floor/unit and/or counseling patient: Time with patient: less than 15 minutes Quality Stroke Does the patient have a stroke diagnosis?: No VTE Prior VTE?: No VTE Risk Level:: Surgical - very high VTE Device Contraindication: N/A - Device Ordered VTE Drug Contraindication: N/A - Med Ordered
[2021-07-18 08:57] VITALS: BP 153/86; PULSE 94; O2SAT 96
--- NOTE | 2021-07-18 09:05 | MHC.CM.PN ---
PATIENT HAS CENTRAL COMMUNICATIONS SPECIALIST 3 DAYS PER WEEK AND FEELS READY TO RETURN HOME TODAY. CENTRAL COMMUNICATIONS SPECIALIST/FRIEND WILL BE INTO PROVIDE TRANSPORTATION. WALKER AND CANE IN HOME IMM DISCUSSED AND SIGNED 2/2COPY IN CHART.
--- NOTE | 2021-07-18 09:10 | P.DS_ITS ---
DS: Providers Provider Date of Service: 07/18/21 Date of admission: 07/17/21 06:22 Primary care physician: Aung Vega MD Consults: 07/17/21 12:47 Consult to Hospitalist Routine Consulting Provider: Hospitalist Reason For Exam: h/o cardiac history, post op medical management DS: Diagnosis Discharge Diagnosis (1) History of total replacement of right shoulder joint: Status: Acute DS: Summary Hospital Course Hospital Course: The patient underwent a successful Right total shoulder arthroplasty, was transferred to PACU and then to the floor to recover. During their stay, their vitals were stable, afebrile at 97.6 . Labs were unremarkable, H/H 12.4/36.1. POD 1 she was started on ASA 325 bid for DVT ppx, they also received PT/OT services. Prior to discharge, dressing clean, dry and intact. The plan is to be discharged home with VNA services. Time Spent with Patient Time attestation: Total time spent providing and/or coordinating discharge services: Discharge coordination time: Less than 30 minutes Quality: Stroke Does the patient have a stroke diagnosis?: No Physical Exam Verdana 4l Vital Signs: Verdana 4d Verdana 4d Vital Signs: Verdana 4d Verdana 4Bd Last Vital Signs Verdana 4d Computer Analyst Supervisor New 4d Computer Analyst Supervisor New 4d Temp 99.0 F 07/18/21 08:00 Computer Analyst Supervisor New 4d Pulse 94 07/18/21 08:57 Computer Analyst Supervisor New 4d Resp 18 07/18/21 08:00 BP 153/86 H 07/18/21 08:57 Pulse Ox 96 07/18/21 08:57 BMI result Body Mass Index 33.1 Const: General: cooperative, healthy appearing and no acute distress Resp: Effort & Inspection: normal respiratory effort and able to speak in complete sentences Cardio: Rate: regular rate Peripheral pulses: Peripheral pulses 2+ throughout GI: Palpation (GI): Soft to palpation Skin: General skin exam: no rashes or lesions noted Extrem: Other: Right shoulder bandage clean, dry and intact. No erythema, mild swelling, sensation intact. DS: Data Data Completed and Pending Pending studies at discharge: Pending at discharge 07/17/21 09:47 Surgical [PTH] Routine Labs on day of discharge: Laboratory Results - last 24 hr 07/18/21 07/18/21 05:54 05:54 WBC 11.7 H RBC 3.57 L Hgb 12.4 Hct 36.1 L MCV 101.1 H MCH 34.7 H MCHC 34.3 RDW 11.5 Plt Count 159 L MPV 10.0 Immature Gran % (Auto) 0.3 Neut % (Auto) 76.4 H Lymph % (Auto) 10.2 L [place] % (Auto) 13.0 H Eos % (Auto) 0.1 Baso % (Auto) 0.0 Lymph # (Auto) 1.2 [place] # (Auto) 1.5 H Eos # (Auto) 0.0 Baso # (Auto) 0.0 Abs Immat Gran (auto) 0.04 H Absolute Neuts (auto) 9.0 H Absolute Nucleated RBC 0.000 Nucleated RBC % (auto) 0.0 Smear Tech's Comments VERIFIED Sodium 140 Potassium 4.0 D Chloride 109 H Carbon Dioxide 23 Anion Gap 12 BUN 14 Creatinine 0.70 Estim Creat Clear Calc 94.8 Estimated GFR > 60 Fasting Glucose 121 H Calcium 9.3 Discharge Plan Discharge Patient Disposition: Home Health Service Discharge Diagnosis: s/p RT TSA Referrals: Aleksandar KILPATRICK [Outside] - 1 Week Columba Nguyễn PA-C [Physician Clerical Warehouse Worker] - 08/02/21 12:30 pm (08/02/21 12:30 [facility] Columba Nguyễn PA-C) Discharge Medications: New docusate sodium 100 mg Capsule 100 mg PO BID 14 Days Qty: 28 0RF oxycodone 10 mg tablet 10 mg PO Q4H PRN (Reason: Pain, Moderate (Pain Scale 4-6) 7 Days Qty: 42 0RF acetaminophen 325 mg Tablet 650 mg PO Q6H PRN (Reason: Pain, Mild (Pain Scale 1-3)) 30 Days Qty: 240 0RF aspirin 325 mg Tablet 325 mg PO BID 42 Days Qty: 84 0RF Continued carvedilol 3.125 mg tablet 3.125 mg PO BID Qty: 180 4RF Rx Instructions: must administer with a meal/food omeprazole 20 mg capsule,delayed release(DR/EC) 20 mg PO QAM 0RF venlafaxine 225 mg tablet extended release 24hr 225 mg PO BEDTIME 0RF melatonin 12 mg Tablet 12 mg PO BEDTIME 0RF albuterol sulfate [Ventolin HFA] 90 mcg/actuation Hfa Aerosol Inhaler 2 puff INHALATION Q4-6H PRN (Reason: Shortness Of Breath) 0RF tizanidine 4 mg Tablet 4 mg PO TID PRN (Reason: Muscle Spasm) 0RF lisinopril 20 mg tablet 20 mg PO QAM 0RF amlodipine 10 mg tablet 10 mg PO QAM 0RF ezetimibe 10 mg tablet 10 mg PO BEDTIME 0RF Discontinued acetaminophen 500 mg Tablet 1,000 mg PO BID 0RF tramadol 50 mg Tablet 50 mg PO BID PRN (Reason: Pain) 0RF Discharge Orders: Discharge Order (Routine); Ordered 07/18/21 Ordered By: Columba Nguyễn Diet: regular diet Activity on Discharge: Use cane or walker Stand Alone Forms: Patient Portal Discharge page Care Plan Goals: Restore function of joint Health Concerns: None Plan of Treatment: Physical Therapy Pain management DVT prophylaxis Assessment: * Wear sling at all times unless for hygiene and exercises * Pendelums three times a day * Physical Therapy/ Occupation therapy * ---no ER beyond neutral . FF to 90, ABD 45. * ---No lifting * ---Elbow and wrist ROM ok * Aspirin 325 mg twice a day * Follow up with orthopedics in 2 weeks
[2021-07-18] MEDS: Aspirin 325 MG TABLET PO (09:58)
[2021-07-18] MEDS: Acetaminophen 325 MG TABLET 650 MG PO (10:04)
--- NOTE | 2021-07-18 11:51 | W.MHC.F2F ---
Service Date Service Date: 07/18/21 Encounter Date of encounter: 07/18/21 Reasons for Services Signs and symptoms assessed: Right shoulder pain, swelling, limitations with activities Reason for physical therapy: home safety and mobility, therapeutic exercises, restore joint function, gait/transfer training, ADL training and energy conservation Reason for occupational therapy: home safety and mobility, therapeutic exercises, restore joint function, gait/transfer training, ADL training and energy conservation MD Overseeing Care: Aleksey Murphy Homebound: Leaving the home is medically contraindicated at this time without the asist of a device and/or another person due th the listed conditions above and below. Reason homebound: unsteady gait / fall risk, poor balance / fall risk and unable to drive Homebound supporting statement: Pt. is considered home bound due to recent surgery. Unable to drive, poor balance, poor gait mechanics. Certification: Based on the above findings, I certify that this patient is confined to the home and needs intermittent residential care, physical therapy and/or speech therapy, or continues to need occupational therapy. The patient is under my care, and I have initiated the establishment of the plan of care. The patient will be followed by a physician who will periodically review the plan of care.
--- NOTE | 2021-08-22 15:21 | P.OP_ITS ---
Operative Note Operative Note Date of Service: 07/18/21 Narrative: Pre-op diagnosis: right shoulder OA Post-op diagnosis: same Procedure: Right TSA Implants: Tournier 48 flex cementless stem 48x20 high offset head small 40 Perform glenoid Surgeon: Aleksey Murphy MD Anesthesia: GETA and regional Was an Certified Diabetes Educator used for this Procedure?: Yes Certified Diabetes Educator: Columba Nguyễn Estimated blood loss (mL): 200 IV fluids (mL): 1,000 Pathology: none sent Condition: stable Disposition: PACU Patient was brought to the operating room and placed in the beach chair position on the surgical table. The limb was prepped and draped in standard sterile fashion and a time out was called to identify proper site, proper procedure and IV antibiotics per weight were administered. I began by making a deltopectoral incision from the coracoid to the pectoralis insertion. Blunt dissection identified the cephalic vein which was retracted laterally. Blunt dissection was taken down to the 3 sisters which were cauterized. I then made a full-thickness capsulotomy involving the subscapularis. This was then tagged and the arm was externally rotated and extended and the head was dislocated. The humeral head was eburnated. There RTC was intact. Once the head was well visualized a anatomic neck cut was made in approximately 130 2 degree angle while protecting the posterior and inferior soft tissues. A starter awl was used to identify the canal and then I broached up to a size #3 at 30 degrees of version. I then placed my head protector and turned my attention to the glenoid. Posterior anterior and superior glenoid retractors were placed and the biceps was tenotomized and labral tissue was removed. A guide pin was placed in approximately 5 degrees of retroversion and neutral inclination. Using a reamer I reamed down to bleeding bone mostly inferior and I then placed the glenoid drill guide. One central and two additional holes were drilled and pegged glenoid trial was placed. I then trialed with a 28 stem and 20 high offset head and was satisfied with the stability. I Therefore I cemented in the 40 Perform glenoid while applying axial compression. Once the cement was dry and all excess cement was removed I returned to the humerus. Using a 48 flex cementless stem with a high offset head was stable so after copious irrigation the implant was assembled on the back table and impacted in. I then irrigated copiously and closed the subscapularis anatomically. I then closed in a layered fashion with absorbable suture and omaira and the patient was placed in a sterile dressing and an abduction sling. She was extubated brought to recovery room stable condition there were no known complications.
== END 2021-07-18 13:14 | disposition home health service (06) | DRG 483 ==
LOC: HO.SSSA 06:26 → HO.S3 11:39
PROVIDERS: Physician Assistant; Admitting Provider Orthopaedic Surgery; PCP Internal Medicine; Visit Provider Orthopaedic Surgery
PROC: 0RRJ0JZ Replacement of Right Shoulder Joint with Synthetic Substitute, Open Approach (ICD-10-PCS; CPT 23472; principal; 2021-07-17 07:30)
DX: M19.011 Primary osteoarthritis, right shoulder (principal); Z20.822 Contact with and (suspected) exposure to COVID-19; F17.210 Nicotine dependence, cigarettes, uncomplicated; Z71.6 Tobacco abuse counseling; Z88.0 Allergy status to penicillin; Z79.899 Other long term (current) drug therapy
CPT/HCPCS: 23472; 36415; 73020; 80048; 83735; 85025; 86850; 86900; 86901; 87635; 87640; 87641; 88304; 88311; 94640; 97110; 97162; 97165; C1713; C1776; J0690; J1100; J1885; J2250; J2370; J2405; J3010

== ENCOUNTER 2021-08-02 07:29 | Outpatient (REF) | payer MEDICARE, MEDICAID, SELFPAY ==
--- NOTE | ~2021-08-02 | XR_ITS ---
EXAMINATION: XR SHOULDER, RIGHT CLINICAL INFORMATION: Pain in right shoulder. COMPARISON: None TECHNIQUE: 2 views of the right shoulder. FINDINGS: There is unipolar right humeral prosthesis with immediate postoperative changes seen. Moderate hypertrophic enthesophyte is seen along the superior acromion. The soft tissues are normal. XR/XR shoulder RT min 2V IMPRESSION: Immediate postoperative changes following unipolar right humeral prosthesis.
== END 2021-08-02 07:30 | disposition home or self-care (01) ==
LOC: HO.HOSX 07:29
PROVIDERS: Visit Provider Physician Assistant
DX: Z47.1 Aftercare following joint replacement surgery (principal); Z96.611 Presence of right artificial shoulder joint
CPT/HCPCS: 73030; 99212

== ENCOUNTER 2021-08-02 11:11 | Outpatient (RCR) | payer MEDICARE, MEDICAID, SELFPAY | END 2021-09-10 15:22 | disposition home or self-care (01) | LOC: HO.PT 11:11 | PROVIDERS: Visit Provider Physician Assistant | DX: S68.11 Complete traumatic metacarpophalangeal amputation of other and unspecified finger (principal) ==

== ENCOUNTER 2021-08-31 07:58 | Outpatient (REF) | payer MEDICARE, MEDICAID, SELFPAY ==
--- NOTE | ~2021-08-31 | XR_ITS ---
EXAMINATION: XR SHOULDER, RIGHT CLINICAL INFORMATION: Pain. COMPARISON: Right shoulder 08/02/2021. TECHNIQUE: AP external rotation, Grashey, scapular Y, and axillary views of the right shoulder. FINDINGS: There is a right shoulder prosthesis with the prosthetic components in satisfactory alignment. No prosthetic loosening seen. There is no periprosthetic fracture. The soft tissues are normal. XR/XR shoulder RT 1V IMPRESSION: Right unipolar humeral prosthesis in alignment. Surgical omaira and removed from previous study. No periprostatic abnormality or fracture.
== END 2021-08-31 07:59 | disposition home or self-care (01) ==
LOC: HO.HOSX 07:58
PROVIDERS: Visit Provider Physician Assistant
DX: Z47.1 Aftercare following joint replacement surgery (principal); Z96.611 Presence of right artificial shoulder joint
CPT/HCPCS: 73020; 99212

== ENCOUNTER 2021-10-12 11:57 | Outpatient (REF) | payer MEDICARE, MEDICAID, SELFPAY ==
--- NOTE | ~2021-10-12 | XR_ITS ---
EXAMINATION: XR SHOULDER, RIGHT CLINICAL INFORMATION: Right shoulder pain COMPARISON: 08/31/2021 TECHNIQUE: Three views of the right shoulder. FINDINGS: There is a right total shoulder arthroplasty. The humeral component articulates appropriately with the glenoid component. No periprosthetic lucency or fracture. Degenerative changes are present at the acromioclavicular joint. The visualized lung is clear. The visualized ribs are intact. XR/XR shoulder RT min 2V IMPRESSION: Total right shoulder arthroplasty without evidence of failure. Moderate degenerative change of the acromioclavicular joint.
== END 2021-10-12 11:58 | disposition home or self-care (01) ==
LOC: HO.HOSX 11:57
PROVIDERS: Visit Provider Physician Assistant
DX: Z47.1 Aftercare following joint replacement surgery (principal); G56.21 Lesion of ulnar nerve, right upper limb; Z96.611 Presence of right artificial shoulder joint
CPT/HCPCS: 73030; 99212

== ENCOUNTER 2021-11-26 11:49 | Outpatient (REF) | payer MEDICARE, MEDICAID, SELFPAY ==
--- NOTE | ~2021-11-26 | XR_ITS ---
EXAMINATION: XR SHOULDER, RIGHT CLINICAL INFORMATION: Pain COMPARISON: Previous x-ray most recent September 2021 TECHNIQUE: Two views of the right shoulder. FINDINGS: There is a right shoulder replacement that appears unchanged. No fracture or dislocation is seen. There is arthritis at the acromioclavicular joint. Soft tissues are unremarkable. XR/XR shoulder RT min 2V IMPRESSION: Stable appearance to the right shoulder replacement.
== END 2021-11-26 11:50 | disposition home or self-care (01) ==
LOC: HO.HOSX 11:49
PROVIDERS: Visit Provider Orthopaedic Surgery
DX: M12.812 Other specific arthropathies, not elsewhere classified, left shoulder (principal); R20.0 Anesthesia of skin; Z96.611 Presence of right artificial shoulder joint
CPT/HCPCS: 20610; 73030; 99212; J1100

== ENCOUNTER 2021-12-07 12:41 | Outpatient (REF) | payer MEDICARE, MEDICAID, SELFPAY ==
--- NOTE | ~2021-12-07 | MR_ITS ---
EXAMINATION: MR CERVICAL SPINE WITHOUT CONTRAST CLINICAL INFORMATION: Anesthesia of the skin. COMPARISON: No relevant prior imaging. TECHNIQUE: MRI of the cervical spine was obtained using routine sequences without contrast. FINDINGS: There is slight retrolisthesis of C5 on C6 and C6 on C7. Alignment is otherwise normal. Vertebral heights are preserved. There are mixed degenerative endplate changes at C4-C5, C5-C6, and C6-C7. There is loss of intervertebral disc height and T2 signal intensity at multiple levels related to disc degeneration. There is no canal compromise or cord compression. No abnormal intramedullary signal changes. The cervicomedullary junction is normal. Limited visualization of the posterior fossa reveals no abnormal finding. The occipital condyles and lateral C1 masses are intact. There is degenerative arthrosis of the atlantodental joint. C1-C2 articular facets are unremarkable. At C2-C3 the annular contour is normal. No canal or neuroforaminal compromise. At C3-C4 the annular contour is normal. No canal or neuroforaminal compromise. At C4-C5 there is a slightly bulging disc. No canal stenosis. Asymmetric uncovertebral joint spurring and facet degenerative change causes severe right neuroforaminal encroachment. At C5-C6 there is a slightly bulging disc. No canal stenosis. Asymmetric uncovertebral joint spurring and facet degenerative change causes severe right neuroforaminal encroachment. At C6-C7 there is a diffusely bulging disc. No canal stenosis. Uncovertebral joint spurring and facet degenerative change causes moderate bilateral neuroforaminal compression. At C7-T1 the annular contour is normal. Bilateral facet degenerative change. No canal stenosis. Mild to moderate bilateral neuroforaminal encroachment. Visualized soft tissues of the neck are normal. Vascular flow voids are grossly maintained. MR/MR cervical spine wo con IMPRESSION: There is multilevel degenerative spondylosis of the cervical spine with slight retrolisthesis of C5 on C6 and C6 on C7. No canal compromise or cord compression. No abnormal intramedullary signal changes. There are varying degrees of neuroforaminal encroachment related to uncovertebral joint spurring and facet degenerative change as described above.
[2021-12-07 14:20] LABS: Anion Gap 11 (12-20); Blood Urea Nitrogen 16 mg/dL (9-16); Calcium 9.7 mg/dL (8.4-10.2); Carbon Dioxide 26 mmol/L (22-29); Chloride 103 mmol/L (96-108); Estimated Glomerular Filt Rate > 60; Glucose Random 101 mg/dL (60-115); Magnesium 1.8 mg/dL (1.6-2.6); Potassium 4.3 mmol/L (3.3-5.1); Sodium 136 mmol/L (135-145)
== END 2021-12-07 12:42 | disposition home or self-care (01) ==
LOC: HO.MRI 12:41
PROVIDERS: Nurse Practitioner Family; Visit Provider Orthopaedic Surgery
DX: R20.0 Anesthesia of skin (principal); R94.31 Abnormal electrocardiogram [ECG] [EKG]
CPT/HCPCS: 36415; 72141; 80048; 83735

== ENCOUNTER 2021-12-14 10:10 | Outpatient (REF) | payer MEDICARE, MEDICAID, SELFPAY | END 2021-12-14 10:11 | disposition home or self-care (01) | LOC: HO.CT 10:10 | PROVIDERS: PCP Nurse Practitioner Family; Visit Provider Nurse Practitioner Family | DX: Z13.89 Encounter for screening for other disorder (principal) ==

== ENCOUNTER 2021-12-19 07:54 | Outpatient (REF) | payer MEDICARE, MEDICAID, SELFPAY ==
--- NOTE | ~2021-12-19 | CT_ITS ---
EXAMINATION: CT ANGIOGRAM OF THE CHEST WITHOUT AND WITH CONTRAST CLINICAL INFORMATION: Thoracic aortic ectasia, aneurysm COMPARISON: None. TECHNIQUE: Multidetector volumetric CT imaging of the chest was performed before and after the administration of 70 mL of Omnipaque 350 intravenous contrast without immediate adverse reactions. 3D POSTPROCESSING: Multiple 3-D angiographic images were processed from the initial data set by the instrumentation technologist at the modality workstation under concurrent physician supervision. DOSE LOWERING TECHNIQUES: This CT examination was performed using dose optimization techniques as appropriate, variously including the following: - Automated exposure control - Adjustment of mA and/or kV according to patient size (this includes techniques or standardized protocols for targeted exams where dose is matched to indication/reason for exam; i.e. extremities or head) - Use of iterative reconstruction technique DLP: 181 mGy-cm. FINDINGS: VASCULAR: ASCENDING AORTA: Measurements performed on the transaxial images The aortic sinuses measure 3.4 cm. The mid segment measures 4.1 x 4.1 cm. No significant atherosclerotic plaque AORTIC ARCH: The mid aortic arch 2.7 x 2.6 cm. Three-vessel arch anatomy. Scattered atherosclerotic wall calcifications. Heavily calcified plaque is seen in the proximal right subclavian artery and left subclavian artery DESCENDING AORTA: The mid segment measures 3.7 x 2.6 cm. Mild scattered atherosclerotic plaque ABDOMINAL AORTA: Visualized proximal abdominal aorta is normal in caliber. NONVASCULAR: LUNGS: Mild fibrotic changes seen in the lung parenchyma. No focal infiltrates or suspicious pulmonary nodules MEDIASTINUM: The mediastinum is normal. PLEURA: There is no pleural effusion. No pleural mass or thickening. ABDOMINAL VISCERA: Unremarkable OSSEOUS STRUCTURES: Unremarkable. CT/CT angio chest aorta IMPRESSION: Ascending thoracic aorta is mildly dilated measuring 4.1 cm Atherosclerotic plaque in the aorta and branch vessels off the aortic arch. More heavily calcified plaque with possible stenoses seen in the bilateral proximal subclavian arteries
[2021-12-19] MEDS: iohexoL 350 MG/ML 100 ML INFUS..BTL IV (08:46)
== END 2021-12-19 07:55 | disposition home or self-care (01) ==
LOC: HO.CT 07:54
PROVIDERS: PCP Nurse Practitioner Family; Visit Provider Nurse Practitioner Family
DX: I77.819 Aortic ectasia, unspecified site (principal)
CPT/HCPCS: 71275; Q9967

== ENCOUNTER → 2022-01-18 11:16 | Outpatient (BNVA) | payer MEDICARE, MEDICAID, SELFPAY | PROVIDERS: PCP Nurse Practitioner Family; Visit Provider Orthopaedic Surgery | DX: M54.12 Radiculopathy, cervical region (principal); M12.812 Other specific arthropathies, not elsewhere classified, left shoulder; Z96.611 Presence of right artificial shoulder joint | CPT/HCPCS: 99212 ==

== ENCOUNTER → 2022-02-25 14:05 | Outpatient (BNVA) | payer MEDICARE, MEDICAID, SELFPAY | PROVIDERS: PCP Nurse Practitioner Family; Visit Provider Anesthesiology | DX: M47.812 Spondylosis without myelopathy or radiculopathy, cervical region (principal); M54.2 Cervicalgia; M50.30 Other cervical disc degeneration, unspecified cervical region; G56.00 Carpal tunnel syndrome, unspecified upper limb | CPT/HCPCS: 99202 ==

== ENCOUNTER 2022-03-26 06:07 | Outpatient (REF) | payer MEDICARE, MEDICAID, SELFPAY ==
--- NOTE | ~2022-03-26 | FL_ITS ---
EXAMINATION: XR FLUOROSCOPY WITH IMAGES CLINICAL INFORMATION: M47.812 - Spondylosis without myelopathy or radiculopathy, cervical region COMPARISON: MR cervical spine 12/07/2021 TECHNIQUE: Fluoroscopy performed by Dr. Felipe Santos. Fluoroscopy time: 0.6 minutes. Cumulative Dose: 7.36 mGy. DAP: 2.00 Gy-cm2. Images: 6. FINDINGS: There are spinal needles overlying the bilateral lateral masses cervical spine estimated at C4, C5, and C6 levels. There is contrast in the paraspinal soft tissues and nerve sheaths. No visible vascular communication. FL/FL guidance in treatment room IMPRESSION: Fluoroscopy for pain management procedure.
== END 2022-03-26 06:08 | disposition home or self-care (01) ==
LOC: CF 06:07
PROVIDERS: Visit Provider Anesthesiology
DX: M47.812 Spondylosis without myelopathy or radiculopathy, cervical region (principal); M50.30 Other cervical disc degeneration, unspecified cervical region
CPT/HCPCS: 64490; 64491

== ENCOUNTER → 2022-03-28 08:02 | Outpatient (BNVA) | payer MEDICARE, MEDICAID, SELFPAY | PROVIDERS: PCP Nurse Practitioner Family; Visit Provider Anesthesiology | DX: M47.812 Spondylosis without myelopathy or radiculopathy, cervical region (principal); M50.30 Other cervical disc degeneration, unspecified cervical region; G56.00 Carpal tunnel syndrome, unspecified upper limb | CPT/HCPCS: Q3014 ==

== ENCOUNTER 2022-09-13 13:06 | Outpatient (REF) | payer MEDICARE, MEDICAID, SELFPAY ==
--- NOTE | ~2022-09-13 | CT_ITS ---
EXAMINATION: CT SCAN OF THE TEMPORAL BONES CLINICAL INFORMATION: Vertigo COMPARISON: None. TECHNIQUE: Multidetector helical imaging was performed in the axial plane with generation of oblique axial and coronal reformatted projections. This CT examination was performed using dose optimization techniques as appropriate, variously including the following: *Automated exposure control *Adjustment of mA and/or kV according to patient size (this includes techniques or standardized protocols for targeted exams where dose is matched to indication/reason for exam; i.e. extremities or head) *Use of iterative reconstruction technique DLP: 165 mGy-cm. FINDINGS: -- Right Temporal Bone -- The periauricular soft tissues are unremarkable. There is asymmetric mild soft tissue thickening along the right external auditory canal however without significant luminal narrowing, contiguous with asymmetrically thickened tympanic membrane which however appears intact. There is an osseous defect of the tegmen tympani measuring 7 x 7 mm (AP x TR), best appreciated on image 206, series 11 and image 150, series 4 with lobulated soft tissue projecting inferiorly into and partially opacifying the posterior attic, mastoid antrum, and aditus ad antrum, suspicious for encephalocele. There may be an additional smaller region of dehiscence along the anterior wall of the tegmen tympani (image 83, series 3) with subjacent small polypoid soft tissue opacifying the anterior epitympanum along the anterior margin of the head of the malleus. There is patchy opacification throughout the middle ear cleft, including along the roof and anteromedial epitympanum, including Prussak's space with suggestion of asymmetric blunting of the scutum. Opacification extends along the ossicular chain, abutting the medial aspect of the malleus and incus and opacifying the oval window niche along the stapes superstructure. Partial opacification of the sinus tympani and facial nerve recess as well as along the floor of the hypotympanum, which may reflect CSF leak in the setting of an encephalocele. No definite ossicular erosion. Opacification within the middle ear cleft obscures assessment of the tympanic segment of the facial canal. The round window is normal. There is normal mineralization of the otic capsule. The cochlea and vestibule are normal. There is significant thinning of the bony apex overlying the superior semicircular canal for which dehiscence is not excluded and can be correlated for signs of the window phenomenon. The vestibular aqueduct is normal. The bony internal auditory canal is normal. -- Left Temporal Bone -- The periauricular soft tissues are unremarkable. The external auditory canal is clear. The tympanic membrane is intact without thickening. The scutum is normal. Query anterior tegmen tympani osseous defect/dehiscence with some lobulated soft tissue projecting into the anterior epitympanum, abutting the superior margin of the head of the malleus (image 241, series 9). The ossicles are normal without erosive change. The round and oval windows are normal. There is normal mineralization of the otic capsule. The mastoid air cells are clear. The cochlea and vestibule are normal. There is thinning of the bony apex overlying the superior semicircular canal without definite dehiscence. The vestibular aqueduct is normal. The bony internal auditory canal is normal. The facial nerve course is normal. -- Other Findings -- The bilateral carotid canals and jugular foramina are normal. The visualized paranasal sinuses are well aerated. The orbits are unremarkable. Calcific atherosclerotic disease of the carotid siphons and along the proximal intradural right vertebral artery. CT/CT internal auditory canals BI IMPRESSION: RIGHT TEMPORAL BONE: 1. There is an osseous defect/dehiscence of the tegmen tympani measuring 7 x 7 mm with lobulated soft tissue projecting into and partially opacifying the posterior attic, mastoid antrum, and aditus ad antrum, suspicious for encephalocele. There may be an additional smaller region of dehiscence along the anterior wall of the tegmen tympani with subjacent small polypoid soft tissue opacifying the anterior epitympanum along the anterior margin of the head of the malleus. Patchy opacification throughout the right middle ear cleft as above, including within Prussak's space, with suggestion of asymmetric blunting of the scutum, for which cholesteatoma is not excluded and can be correlated with direct visual inspection. No definite ossicular erosion. Asymmetric thickening of the right tympanic membrane contiguous with mild soft tissue thickening lining the right external auditory canal. 2. There is significant thinning of the bony apex overlying the right superior semicircular canal for which dehiscence is not excluded and can be correlated for signs of the window phenomenon. LEFT TEMPORAL BONE: 1. Query anterior tegmen tympani osseous defect/dehiscence with mild lobulated soft tissue projecting into the anterior epitympanum, abutting the superior margin of the head of the malleus. 2. There is thinning of the bony apex overlying the superior semicircular canal without definite dehiscence.
== END 2022-09-13 13:07 | disposition home or self-care (01) ==
LOC: HO.CT 13:06
PROVIDERS: PCP Internal Medicine; Visit Provider Otolaryngology
DX: D33.3 Benign neoplasm of cranial nerves (principal); H81.4 Vertigo of central origin
CPT/HCPCS: 70480